=== PATIENT | male | born 1950 | race Caucasian/White ===

== ENCOUNTER → 2018-08-04 | Outpatient (CLI) | payer MEDICARE | END | disposition home or self-care (01) | LOC: RAH 11:47 | PROVIDERS: ATTEND Orthopaedic Surgery | DX: M75.102 Unspecified rotator cuff tear or rupture of left shoulder, not specified as traumatic (principal) | CPT/HCPCS: 73221 ==

== ENCOUNTER → 2022-08-15 | Outpatient (CLI) | payer MEDICARE | END | disposition home or self-care (01) | LOC: SHCH 14:56 | PROVIDERS: ATTEND Internal Medicine Cardiovascular Disease | DX: I51.7 Cardiomegaly (principal); R01.1 Cardiac murmur, unspecified; E78.5 Hyperlipidemia, unspecified | CPT/HCPCS: 93306 ==

== ENCOUNTER 2023-01-23 05:52 | Day surgery (SDC) | payer MEDICARE ==
[2023-01-21 10:17] LABS: BASOPHILS # (AUTO) 0.03 K/uL (0.00-0.20); BASOPHILS % (AUTO) 0.3 % (0.0-5.0); EOSINOPHILS # (AUTO) 0.27 K/uL (0.00-0.70); EOSINOPHILS % (AUTO) 2.8 % (0.0-8.0); HEMATOCRIT 49.3 % (42-54); IMMATURE GRANULOCYTE ABSOLUTE 0.03 K/uL (0-1); LYMPHOCYTES # (AUTO) 3.2 K/uL (1.0-4.8); LYMPHOCYTES % (AUTO) 32.4 % (21.0-51.0); MEAN CORPUSCULAR HEMOGLOBIN 28.2 pg (27.0-33.0); MEAN CORPUSCULAR HGB CONC 32.5 g/dL (32.0-36.0); MEAN CORPUSCULAR VOLUME 86.9 fL (79-99); MONOCYTES # (AUTO) 1.1 K/uL (0.1-1.0); MONOCYTES % (AUTO) 11.1 % (3.0-13.0); NEUTROPHILS # (AUTO) 5.2 K/uL (1.8-7.7); NEUTROPHILS % (AUTO) 53.1 % (40.0-77.0); PLATELET COUNT (AUTO) 235 K/uL (130-400); RED BLOOD CELL COUNT(AUTO) 5.67 MIL/uL (4.50-6.20); RED CELL DISTRIBUTION WIDTH 13.2 % (11.0-15.5); WHITE BLOOD COUNT (AUTO) 9.8 K/uL (4.8-10.8)
[2023-01-21 10:29] LABS: APPEARANCE,URINE CLEAR (CLEAR); BILIRUBIN,URINE NEGATIVE (NEGATIVE); COLOR,URINE LIGHT-YELLOW (YELLOW); GLUCOSE, URINE (UA) NEGATIVE (NEGATIVE); KETONES,URINE NEGATIVE (NEGATIVE); LEUKOCYTE ESTERASE ,URINE NEGATIVE Leu/uL (NEGATIVE); NITRATE,URINE NEGATIVE (NEGATIVE); OCCULT BLOOD,URINE NEGATIVE (NEGATIVE); PROTEIN,URINE NEGATIVE (NEGATIVE); UROBILINOGEN,URINE 0.2 mg/dL (0.2-1.0)
[2023-01-21 10:30] LABS: CREATININE 0.9 mg/dL (0.5-1.5)
[2023-01-21 10:35] LABS: INR 0.96 (0.85-1.15); PROTHROMBIN TIME 11.2 SEC (9.6-11.6)
[2023-01-21 10:36] LABS: PARTIAL THROMBOPLASTIN TIME 26.5 SEC (26.3-35.5)
[2023-01-21 10:42] LABS: ADD UA MICROSCOPIC NO
[2023-01-21 11:03] VITALS: BP 134/88; PULSE 61; RESP 18
[2023-01-21 11:09] LABS: B-TYPE NATRIURETIC PEPTIDE 102 pg/mL (0-100)
[~2023-01-23] VITALS: Ht 182.9 cm; Wt 96.7 kg
[2023-01-23] VITALS (18 sets, daily range): BP systolic 94–134; BP diastolic 57–97; PULSE 54–70; RESP 12–17
[~2023-01-23 05:52] MED LIST: APIX5TAB PO; ASCO500C18 PO; CALCIUM ANTACID PO; CETI10CA5 PO; CINNAMON PO; CRAN500T4 PO; FISH1CAP27 PO; FLEC50TA3 PO; GLUC-29 PO; LUBI24CA9 PO; METO25TA6 PO; MULT-1367 PO; ROSU10TA28 PO; UBID100C45 PO; VITAMIN D3 PO
[2023-01-23] MEDS ORDERED: 0.9%NACL 1000ML 1,000 ML IV ONE (06:40)
[2023-01-23] MEDS ORDERED: FENTANYL CITRATE PF 50 MCG/1 ML 2ML VIAL ONE (07:31)
[2023-01-23] MEDS ORDERED: MIDAZOLAM HCL 1 MG/ML 2ML VIAL ONE (07:31)
[2023-01-23] MEDS ORDERED: NALOXONE HCL 0.4 MG/1 ML ML ONE (07:32)
[2023-01-23] MEDS ORDERED: FLUMAZENIL 0.1MG/1ML 5ML VIAL IV ONE (07:32)
== END 2023-01-23 11:00 | disposition home or self-care (01) ==
LOC: DAH 05:52
PROVIDERS: ATTEND Internal Medicine Cardiovascular Disease
DX: I48.0 Paroxysmal atrial fibrillation (principal); J44.9 Chronic obstructive pulmonary disease, unspecified; I49.3 Ventricular premature depolarization; M75.122 Complete rotator cuff tear or rupture of left shoulder, not specified as traumatic; E78.5 Hyperlipidemia, unspecified; G89.29 Other chronic pain; Z79.01 Long term (current) use of anticoagulants; Z88.0 Allergy status to penicillin; Z98.890 Other specified postprocedural states; Z87.891 Personal history of nicotine dependence; Z79.899 Other long term (current) drug therapy
CPT/HCPCS: 80048; 83880; 85025; 85610; 85730; 81003; 36415; 71045; 93005 ×3; 92960; J3010; J7030; J2250; A4215; A4223 ×3; A7002; A4222; A4221; A4663; A4216; A4606; 99152; J2310; J3490; G0500

== ENCOUNTER 2023-02-22 06:40 | Day surgery (SDC) | payer MEDICARE ==
[2023-02-20 14:38] LABS: BASOPHILS # (AUTO) 0.02 K/uL (0.00-0.20); BASOPHILS % (AUTO) 0.2 % (0.0-5.0); EOSINOPHILS # (AUTO) 0.23 K/uL (0.00-0.70); EOSINOPHILS % (AUTO) 2.2 % (0.0-8.0); HEMATOCRIT 48.3 % (42-54); IMMATURE GRANULOCYTE ABSOLUTE 0.03 K/uL (0-1); LYMPHOCYTES # (AUTO) 3.5 K/uL (1.0-4.8); LYMPHOCYTES % (AUTO) 33.5 % (21.0-51.0); MEAN CORPUSCULAR HEMOGLOBIN 28.3 pg (27.0-33.0); MEAN CORPUSCULAR HGB CONC 32.9 g/dL (32.0-36.0); MEAN CORPUSCULAR VOLUME 86.1 fL (79-99); MONOCYTES # (AUTO) 0.9 K/uL (0.1-1.0); MONOCYTES % (AUTO) 8.3 % (3.0-13.0); NEUTROPHILS # (AUTO) 5.8 K/uL (1.8-7.7); NEUTROPHILS % (AUTO) 55.5 % (40.0-77.0); PLATELET COUNT (AUTO) 237 K/uL (130-400); RED BLOOD CELL COUNT(AUTO) 5.61 MIL/uL (4.50-6.20); RED CELL DISTRIBUTION WIDTH 13.1 % (11.0-15.5); WHITE BLOOD COUNT (AUTO) 10.4 K/uL (4.8-10.8)
[2023-02-20 14:49] LABS: CREATININE 1.1 mg/dL (0.5-1.5); POTASSIUM 4.5 mmol/L (3.5-5.1)
[2023-02-20 14:59] LABS: INR 0.98 (0.85-1.15); PROTHROMBIN TIME 11.4 SEC (9.6-11.6)
[2023-02-20 15:00] LABS: PARTIAL THROMBOPLASTIN TIME 29.6 SEC (26.3-35.5)
[2023-02-20 15:05] VITALS: BP 119/75; PULSE 61; RESP 18
[~2023-02-22] VITALS: Ht 182.9 cm; Wt 96.6 kg
[2023-02-22] VITALS (13 sets, daily range): BP systolic 99–138; BP diastolic 45–93; PULSE 57–74; RESP 14–16
[~2023-02-22 06:40] MED LIST changes: +DRON400T7 PO; -FLEC50TA3 PO; -METO25TA6 PO
[2023-02-22] MEDS ORDERED: 0.9%NACL 1000ML 1,000 ML IV ONE (07:54)
[2023-02-22] MEDS ORDERED: PROPOFOL 10 MG/ML 20ML VIAL IV ONE (08:43)
== END 2023-02-22 09:50 | disposition home or self-care (01) ==
LOC: DAH 06:40
PROVIDERS: ATTEND Internal Medicine Cardiovascular Disease
DX: I48.19 Other persistent atrial fibrillation (principal); J44.9 Chronic obstructive pulmonary disease, unspecified; E66.9 Obesity, unspecified; I49.3 Ventricular premature depolarization; Z88.8 Allergy status to other drugs, medicaments and biological substances; Z88.0 Allergy status to penicillin; Z98.890 Other specified postprocedural states; Z87.891 Personal history of nicotine dependence; Z79.899 Other long term (current) drug therapy; Z79.01 Long term (current) use of anticoagulants; Z68.29 Body mass index [BMI] 29.0-29.9, adult
CPT/HCPCS: 80048; 85025; 85610; 85730; 36415; 92960; 93005 ×2; J7030; J2704; A4620; A4215; A4223 ×3; A7002; A4222; A4221; A4663; A4216; A4606; 99156; 99157; J3490

== ENCOUNTER 2023-03-14 07:16 | Observation (INO) | payer MEDICARE ==
[2023-03-14] VITALS (31 sets, daily range): BP systolic 100–151; BP diastolic 58–100; PULSE 66–96; RESP 13–30; O2SAT 96
[~2023-03-14] VITALS: Ht 182.9 cm; Wt 93.0 kg
[2023-03-14] MEDS ORDERED: AMIODARONE 900MG VIAL 360 MG in DEXTROSE 5%-WATER 200 ML IV SCH (07:30)
[2023-03-14] MEDS ORDERED: AMIODARONE 900MG VIAL 540 MG in DEXTROSE 5%-WATER 300 ML IV SCH (07:30)
[2023-03-14 08:08] LABS: BASOPHILS # (AUTO) 0.03 K/uL (0.00-0.20); BASOPHILS % (AUTO) 0.3 % (0.0-5.0); EOSINOPHILS # (AUTO) 0.34 K/uL (0.00-0.70); EOSINOPHILS % (AUTO) 3.5 % (0.0-8.0); HEMATOCRIT 49.1 % (42-54); IMMATURE GRANULOCYTE ABSOLUTE 0.03 K/uL (0-1); LYMPHOCYTES # (AUTO) 2.9 K/uL (1.0-4.8); LYMPHOCYTES % (AUTO) 29.8 % (21.0-51.0); MEAN CORPUSCULAR HEMOGLOBIN 28.3 pg (27.0-33.0); MEAN CORPUSCULAR HGB CONC 33.2 g/dL (32.0-36.0); MEAN CORPUSCULAR VOLUME 85.4 fL (79-99); NEUTROPHILS # (AUTO) 5.5 K/uL (1.8-7.7); NEUTROPHILS % (AUTO) 56.1 % (40.0-77.0); PLATELET COUNT (AUTO) 238 K/uL (130-400); RED BLOOD CELL COUNT(AUTO) 5.75 MIL/uL (4.50-6.20); RED CELL DISTRIBUTION WIDTH 13.2 % (11.0-15.5); WHITE BLOOD COUNT (AUTO) 9.7 K/uL (4.8-10.8)
[2023-03-14 08:19] LABS: POTASSIUM 4.1 mmol/L (3.5-5.1)
[2023-03-14 08:31] LABS: ALBUMIN 3.8 g/dL (3.5-5.0); BILIRUBIN,TOTAL 0.7 mg/dL (0.2-1.0); MAGNESIUM 1.9 mg/dL (1.80-2.40); THYROID STIMULATING HORMONE 2.15 uIU/mL (0.36-3.74); TOTAL PROTEIN, SERUM 7.4 g/dL (6.0-8.3)
[2023-03-14] MEDS ORDERED: POTASSIUM CHLORIDE 20MEQ/100ML 100 ML IV PRN (19:30)
[2023-03-14] MEDS ORDERED: MAGNESIUM 2GM PREMIX 50ML 50 ML IV PRN (19:30)
[2023-03-14] MEDS ORDERED: POTASSIUM CHLORIDE 10% ELIXIR 20 MEQ/15 ML UDCUP PO PRN (19:30)
[2023-03-14] MEDS ORDERED: KCL 20 MEQ ERTAB PO PRN (19:30)
[2023-03-14] MEDS: APIXABAN 5 MG TABLET PO SCH (20:52)
[2023-03-15] VITALS (17 sets, daily range): BP systolic 104–151; BP diastolic 40–92; PULSE 71–83; RESP 13–58; O2SAT 98
[2023-03-15 04:50] LABS: BASOPHILS # (AUTO) 0.03 K/uL (0.00-0.20); BASOPHILS % (AUTO) 0.3 % (0.0-5.0); EOSINOPHILS # (AUTO) 0.24 K/uL (0.00-0.70); EOSINOPHILS % (AUTO) 2.1 % (0.0-8.0); HEMATOCRIT 48.3 % (42-54); IMMATURE GRANULOCYTE ABSOLUTE 0.06 K/uL (0-1); LYMPHOCYTES # (AUTO) 2.3 K/uL (1.0-4.8); LYMPHOCYTES % (AUTO) 20.1 % (21.0-51.0); MEAN CORPUSCULAR HEMOGLOBIN 28.6 pg (27.0-33.0); MEAN CORPUSCULAR HGB CONC 32.7 g/dL (32.0-36.0); MEAN CORPUSCULAR VOLUME 87.3 fL (79-99); MONOCYTES # (AUTO) 1.2 K/uL (0.1-1.0); MONOCYTES % (AUTO) 10.7 % (3.0-13.0); NEUTROPHILS # (AUTO) 7.5 K/uL (1.8-7.7); NEUTROPHILS % (AUTO) 66.3 % (40.0-77.0); PLATELET COUNT (AUTO) 209 K/uL (130-400); RED BLOOD CELL COUNT(AUTO) 5.53 MIL/uL (4.50-6.20); RED CELL DISTRIBUTION WIDTH 13.2 % (11.0-15.5); WHITE BLOOD COUNT (AUTO) 11.4 K/uL (4.8-10.8)
[2023-03-15 04:59] LABS: MAGNESIUM 1.9 mg/dL (1.80-2.40); POTASSIUM 4.8 mmol/L (3.5-5.1)
[2023-03-15] MEDS ORDERED: AMIODARONE 200 MG TABLET PO ONE (08:30)
[2023-03-15] MEDS: APIXABAN 5 MG TABLET PO SCH (08:30)
[2023-03-15] MEDS ORDERED: PROPOFOL 10 MG/ML 20ML VIAL IV ONE (09:14)
[2023-03-15] MEDS ORDERED: ATROPINE 1MG SYG IVP ONE (09:14)
[2023-03-15] MEDS ORDERED: AMIO200T68 PO (09:54)
== END 2023-03-15 15:45 | disposition home or self-care (01) ==
LOC: EDH 07:16 → DIRECT 07:17 → UNDOADMOB 07:28 → DIRECT 09:13 → 2BH 09:13
PROVIDERS: ADMIT Internal Medicine Cardiovascular Disease; ATTEND Internal Medicine Cardiovascular Disease
DX: I48.19 Other persistent atrial fibrillation (principal); J44.9 Chronic obstructive pulmonary disease, unspecified; Z79.01 Long term (current) use of anticoagulants; Z79.899 Other long term (current) drug therapy
CPT/HCPCS: 96365; 96366; 84443; 83735 ×2; 80053; 85025 ×2; 36415 ×2; 71045; 96367; 92960; 80048; 93005; G0378 ×32; J7060 ×2; J0282 ×2; J3475; J0461; J2704; 99151; J3490

== ENCOUNTER → 2023-04-03 | Outpatient (CLI) | payer MEDICARE ==
[~2023-04-03] MED LIST changes: +AMIO200T68 PO; -DRON400T7 PO
== END | disposition home or self-care (01) ==
LOC: LAB 14:10
PROVIDERS: ATTEND Internal Medicine Cardiovascular Disease
DX: I48.0 Paroxysmal atrial fibrillation (principal)
CPT/HCPCS: 36415; 82565; 84520

== ENCOUNTER → 2023-04-29 | Outpatient (CLI) | payer MEDICARE ==
[~2023-04-29] MED LIST changes: +IOHEXOL-350 75 ML VIAL IV ONE
== END | disposition home or self-care (01) ==
LOC: RAH 08:42
PROVIDERS: ATTEND Internal Medicine Cardiovascular Disease
DX: I71.21 Aneurysm of the ascending aorta, without rupture (principal); I48.0 Paroxysmal atrial fibrillation; I51.7 Cardiomegaly; M47.815 Spondylosis without myelopathy or radiculopathy, thoracolumbar region; N28.1 Cyst of kidney, acquired
CPT/HCPCS: 71275; Q9967

== ENCOUNTER 2023-06-03 00:22 | Emergency (ER) | payer MEDICARE ==
[~2023-06-03] VITALS: Ht 182.9 cm; Wt 93.0 kg
[~2023-06-03 00:22] MED LIST changes: -IOHEXOL-350 75 ML VIAL IV ONE
[2023-06-03 00:50] LABS: BASOPHILS # (AUTO) 0.03 K/uL (0.00-0.20); BASOPHILS % (AUTO) 0.2 % (0.0-5.0); EOSINOPHILS # (AUTO) 0.42 K/uL (0.00-0.70); EOSINOPHILS % (AUTO) 3.5 % (0.0-8.0); HEMATOCRIT 42.2 % (42-54); IMMATURE GRANULOCYTE ABSOLUTE 0.06 K/uL (0-1); LYMPHOCYTES # (AUTO) 3.7 K/uL (1.0-4.8); LYMPHOCYTES % (AUTO) 30.1 % (21.0-51.0); MEAN CORPUSCULAR HEMOGLOBIN 28.9 pg (27.0-33.0); MEAN CORPUSCULAR HGB CONC 33.4 g/dL (32.0-36.0); MEAN CORPUSCULAR VOLUME 86.5 fL (79-99); MONOCYTES # (AUTO) 0.9 K/uL (0.1-1.0); MONOCYTES % (AUTO) 7.6 % (3.0-13.0); NEUTROPHILS # (AUTO) 7.1 K/uL (1.8-7.7); NEUTROPHILS % (AUTO) 58.1 % (40.0-77.0); PLATELET COUNT (AUTO) 194 K/uL (130-400); RED BLOOD CELL COUNT(AUTO) 4.88 MIL/uL (4.50-6.20); RED CELL DISTRIBUTION WIDTH 13.3 % (11.0-15.5); WHITE BLOOD COUNT (AUTO) 12.1 K/uL (4.8-10.8)
[2023-06-03 00:53] LABS: CREATININE 0.9 mg/dL (0.5-1.5); POTASSIUM 4.4 mmol/L (3.5-5.1)
[2023-06-03 00:54] LABS: INR 0.97 (0.85-1.15); PROTHROMBIN TIME 11.3 SEC (9.6-11.6)
[2023-06-03] MEDS: NITROGLYCERIN 0.4 MG SL TAB SL PRN ×3 (00:54→01:29)
[2023-06-03 00:55] LABS: PARTIAL THROMBOPLASTIN TIME 24.2 SEC (26.3-35.5)
[2023-06-03 00:58] LABS: ALBUMIN 3.5 g/dL (3.5-5.0); BILIRUBIN,TOTAL 0.4 mg/dL (0.2-1.0); MAGNESIUM 1.9 mg/dL (1.80-2.40); TOTAL PROTEIN, SERUM 6.5 g/dL (6.0-8.3)
[2023-06-03] MEDS ORDERED: ASPIRIN 81MG CHEW TAB PO ONE (01:00)
[2023-06-03] MEDS ORDERED: AMIODARONE PO (01:59)
[2023-06-03] MEDS ORDERED: IPRATROPIUM/ALBUTEROL SULFATE 3 ML SOLUTION IH PRN (02:00)
[2023-06-03] MEDS ORDERED: LABETALOL 20MG SYG IV PRN (02:00)
[2023-06-03] MEDS ORDERED: ONDANSETRON 4MG INJ IVP ONE (02:00)
[2023-06-03] MEDS ORDERED: ALBUTEROL 0.083% 2.5 MG/3 ML INH IH PRN (02:00)
[2023-06-03] MEDS ORDERED: DOCUSATE SODIUM 100 MG CAP PO PRN (02:00)
[2023-06-03] MEDS ORDERED: CLONIDINE HCL 0.1 MG TABLET PO PRN (02:00)
[2023-06-03] MEDS ORDERED: TEMAZEPAM 15 MG CAPSULE PO PRN (02:00)
[2023-06-03] MEDS ORDERED: LUBI24CA9 PO (02:00)
[2023-06-03] MEDS ORDERED: ACETAMINOPHEN 325 MG TAB PO PRN (02:00)
[2023-06-03] MEDS ORDERED: ACETAMINOPHEN 650 MG SUPPOSITORY RC PRN (02:00)
[2023-06-03] MEDS ORDERED: HYDRALAZINE 20MG/ML VIAL IV PRN (02:00)
[2023-06-03] MEDS ORDERED: ONDANSETRON 4MG INJ IVP PRN (02:00)
[2023-06-03] MEDS ORDERED: MORPHINE 2 MG SYG IVP ONE ×2 (02:00→06:00)
[2023-06-03] MEDS ORDERED: LACTULOSE 20 GM/30 ML UDCUP PO PRN (02:00)
[2023-06-03] MEDS ORDERED: ROSU10TA28 PO (02:01)
[2023-06-03] MEDS ORDERED: APIX5TAB PO (02:01)
[2023-06-03] MEDS ORDERED: MULT-1367 PO (02:02)
[2023-06-03] MEDS ORDERED: UBID50TA3 PO (02:02)
[2023-06-03] MEDS ORDERED: PAPA1TAB10 PO (02:03)
[2023-06-03] MEDS ORDERED: VITAMIN D3 PO (02:04)
[2023-06-03] MEDS ORDERED: ASCO500C18 PO (02:05)
[2023-06-03] MEDS ORDERED: CALCIUM ANTACID PO (02:06)
[2023-06-03] MEDS ORDERED: FISH OIL OMEGA PO (02:07)
[2023-06-03] MEDS ORDERED: LUTE1CAP4 PO (02:08)
[2023-06-03] MEDS ORDERED: CETI10TA57 PO (02:09)
[2023-06-03] MEDS ORDERED: CINNAMON PO (02:09)
[2023-06-03] MEDS ORDERED: CRAN500T PO (02:10)
[2023-06-03] MEDS ORDERED: PSYLLIUM PO (02:11)
[2023-06-03] MEDS ORDERED: [UNRECOGNIZED DRUG - OTHER] PO (02:11)
[2023-06-03] MEDS ORDERED: NITROGLYCERIN 0.4 MG SL TAB SL PRN (02:30)
[2023-06-03] MEDS ORDERED: KETOROLAC 30MG VIAL (30MG/ML) IVP ONE (03:00)
[2023-06-03] MEDS ORDERED: NITROGLYCERIN 1GM OINT 1 INCH/1GM TD SCH (03:00)
[2023-06-03] MEDS ORDERED: PANTOPRAZOLE 40 MG/VIAL IVP ONE (03:00)
[2023-06-03 03:18] VITALS: PULSE 57; RESP 20; O2SAT 98
[2023-06-03 03:23] LABS: SARS-CoV-2, RNA, NAAT NEGATIVE SARS CoV-2 (NEGATIVE)
[2023-06-03 03:27] LABS: INFLUENZA TYPE A Negative For Type A (NEGATIVE); INFLUENZA TYPE B Negative For Type B (NEGATIVE)
[2023-06-03] MEDS ORDERED: IOHEXOL-350 75 ML VIAL IV ONE (04:19)
[2023-06-03] MEDS ORDERED: IOHEXOL 350 MG/ML 100ML INFUS..BTL IV ONE (04:44)
[2023-06-03 05:41] LABS: APPEARANCE,URINE CLEAR (CLEAR); BILIRUBIN,URINE NEGATIVE (NEGATIVE); COLOR,URINE LIGHT-YELLOW (YELLOW); GLUCOSE, URINE (UA) NEGATIVE (NEGATIVE); KETONES,URINE NEGATIVE (NEGATIVE); LEUKOCYTE ESTERASE ,URINE NEGATIVE Leu/uL (NEGATIVE); NITRATE,URINE NEGATIVE (NEGATIVE); OCCULT BLOOD,URINE NEGATIVE (NEGATIVE); PH,URINE 5.5 (5.0-8.0); PROTEIN,URINE 30 mg/dL (NEGATIVE); UROBILINOGEN,URINE 0.2 mg/dL (0.2-1.0)
[2023-06-03 05:42] LABS: ADD UA MICROSCOPIC YES
[2023-06-03 05:44] LABS: MUCUS,URINE MOD LPF (None Seen); SQUAMOUS EPITHELIAL CELL,UR RARE /HPF (0-2)
[2023-06-03] MEDS ORDERED: ACETAMINOPHEN 650 MG SUPPOSITORY RC ONE ×2 (06:50→07:00)
[2023-06-03 06:51] VITALS: TEMP 99.9
[2023-06-03] MEDS ORDERED: LABETALOL IV SCH (07:00)
[2023-06-03] MEDS ORDERED: NACL 0.9% IV SCH (07:00)
[2023-06-03] MEDS ORDERED: SODIUM CHLORIDE IV SCH ×2 (07:30)
[2023-06-03] MEDS ORDERED: INSULIN HUMULIN R 100 UNIT/ML 3ML SQ SCH (07:30)
[2023-06-03] MEDS ORDERED: LABETALOL HCL IV SCH ×2 (07:30)
[2023-06-03 08:19] LABS: AMPHET/METH SCREEN,URINE NEGATIVE (NEGATIVE); BARBITURATE SCREEN, URINE NEGATIVE (NEGATIVE); BENZODIAZEPINES SCREEN,URINE NEGATIVE (NEGATIVE); CANNABINOID SCREEN,URINE NEGATIVE (NEGATIVE); COCAINE SCREEN,URINE NEGATIVE (NEGATIVE); OPIATE SCREEN,URINE POSITIVE (NEGATIVE); PHENCYCLIDINE SCREEN,URINE NEGATIVE (NEGATIVE)
[2023-06-03 08:30] VITALS: BP 105/52; PULSE 58; RESP 14; O2SAT 97
[2023-06-03] MEDS ORDERED: FISH OIL 1000 MG/CAP PO SCH (09:00)
[2023-06-03] MEDS ORDERED: APIXABAN 5 MG TABLET PO SCH (09:00)
[2023-06-03] MEDS ORDERED: CETIRIZINE HCL 5 MG TABLET PO SCH (09:00)
[2023-06-03] MEDS ORDERED: ASPIRIN 81 MG EC TAB PO SCH (09:00)
[2023-06-03] MEDS ORDERED: AMIODARONE 200 MG TABLET PO SCH (09:00)
[2023-06-03] MEDS ORDERED: ENOXAPARIN SODIUM 40 MG/0.4 ML SYRINGE SQ SCH (09:00)
[2023-06-03] MEDS ORDERED: UBIDECARENONE 50 MG PO SCH (09:00)
[2023-06-03] MEDS ORDERED: NON-FORMULARY MEDICATION 1 EACH (Rosuvastatin Calcium 10 MG) PO SCH (09:00)
== END 2023-06-03 09:34 | disposition hospice, inpatient (51) ==
LOC: EDH 00:22 → EDHIP 01:45 → UNDOADMOB 01:45 → EDHIP 01:48 → UNDOADMOB 01:48 → EDHIP 01:49 → UNDODISOB 09:34 → EDHIP 09:34
DX: I24.9 Acute ischemic heart disease, unspecified (principal); I48.91 Unspecified atrial fibrillation; Z20.822 Contact with and (suspected) exposure to COVID-19; Z79.899 Other long term (current) drug therapy; Z98.890 Other specified postprocedural states; Z88.0 Allergy status to penicillin; Z88.8 Allergy status to other drugs, medicaments and biological substances
CPT/HCPCS: 99291; 71275; 74174; 96374; 96375; 71045; 87635; 83735; 84484; 80053; 83880; 80305; 85025; 85378; 85610; 85730; 87420; 87804 ×2; 36415; 99292; 93005; 94664; 81001; 96376; 71270; J2270 ×2; J2405; J1885; C9113; Q9967 ×2; G0378; J3490; J7050

== ENCOUNTER → 2023-08-28 | Outpatient (CLI) | payer MEDICARE ==
[~2023-08-28] MED LIST changes: +AMIODARONE PO; +CETI10TA57 PO; +CRAN500T PO; +FISH OIL OMEGA PO; +LUTE1CAP4 PO; +PAPA1TAB10 PO; +PSYLLIUM PO; +UBID50TA3 PO; +[UNRECOGNIZED DRUG - OTHER] PO
== END | disposition home or self-care (01) ==
LOC: RESP 10:00
PROVIDERS: ATTEND Internal Medicine Cardiovascular Disease
DX: J44.9 Chronic obstructive pulmonary disease, unspecified (principal); Z79.899 Other long term (current) drug therapy
CPT/HCPCS: 94010; 94729

== ENCOUNTER 2024-06-16 05:49 | Day surgery (SDC) | payer MEDICARE ==
[2024-06-12 11:36] LABS: BASOPHILS # (AUTO) 0.03 K/uL (0.00-0.20); BASOPHILS % (AUTO) 0.3 % (0.0-5.0); EOSINOPHILS % (AUTO) 2.3 % (0.0-8.0); IMMATURE GRANULOCYTE ABSOLUTE 0.03 K/uL (0-1); LYMPHOCYTES # (AUTO) 2.1 K/uL (1.0-4.8); LYMPHOCYTES % (AUTO) 23.5 % (21.0-51.0); MEAN CORPUSCULAR HEMOGLOBIN 29.1 pg (27.0-33.0); MEAN CORPUSCULAR HGB CONC 32.9 g/dL (32.0-36.0); MEAN CORPUSCULAR VOLUME 88.4 fL (79-99); MONOCYTES # (AUTO) 0.8 K/uL (0.1-1.0); MONOCYTES % (AUTO) 8.6 % (3.0-13.0); NEUTROPHILS # (AUTO) 5.7 K/uL (1.8-7.7); PLATELET COUNT (AUTO) 190 K/uL (130-400); RED BLOOD CELL COUNT(AUTO) 5.43 MIL/uL (4.50-6.20); RED CELL DISTRIBUTION WIDTH 13.3 % (11.0-15.5); WHITE BLOOD COUNT (AUTO) 8.7 K/uL (4.8-10.8)
--- NOTE | 2024-06-12 11:46 | EKG ---
[facility] Test Date: 2024-06-12 Test Time: 12:11:52 Pat Name: DHIRAJ KNIGHT Department: [facility] Room: Gender: M [employer] Agent: [id number] : 1950 Requested By: JULIÁN ALBARADO Order Number: [id number] Reading MD: Alexandro Watson Measurements Intervals [place] Rate: 118 P: 0 DC: 0 QRS: 258 QRSD: 99 T: 72 QT: 426 QTc: 598 Interpretive Statements Basline artifact, possible Atrial fibrillation with rapid V-rate Ventricular tachycardia, unsustained Left anterior fascicular block Probable lateral infarct, old Compared to ECG 06/03/2023 00:22:34 Ventricular tachycardia now present Myocardial infarct finding now present Sinus rhythm no longer present Electronically Signed On 06-12-2024 12:27:34 [employer]PERATIONAL INTELLIGENCE OFFICER by Alexandro Watson Please click the below link to view image of tracing.
[2024-06-12 11:48] LABS: INR 0.99 (0.85-1.15); PROTHROMBIN TIME 11.1 SEC (9.6-11.6)
[2024-06-12 11:50] LABS: PARTIAL THROMBOPLASTIN TIME 29.2 SEC (26.3-35.5)
[2024-06-12 11:54] LABS: POTASSIUM 4.2 mmol/L (3.5-5.1)
[2024-06-12 12:14] VITALS: BP 156/70; PULSE 52; RESP 18; TEMP 98
[~2024-06-16] VITALS: Ht 182.9 cm; Wt 96.5 kg
[2024-06-16] VITALS (21 sets, daily range): BP systolic 91–140; BP diastolic 40–80; PULSE 51–92; RESP 12–16; TEMP 97.1–98.1
[~2024-06-16 05:49] MED LIST changes: -AMIO200T68 PO; -AMIODARONE PO; -CALCIUM ANTACID PO; -CETI10TA57 PO; -CRAN500T PO; -FISH1CAP27 PO; +LOSA100T59 PO; -LUTE1CAP4 PO; -PSYLLIUM PO; -ROSU10TA28 PO; +ROSU10TA72 PO; -UBID50TA3 PO; -[UNRECOGNIZED DRUG - OTHER] PO
[2024-06-16] MEDS: 0.9%NACL 1000ML 1,000 ML IV ONE (06:43)
[2024-06-16] MEDS ORDERED: acetaMINOPHEN 100 ML ONE (06:54)
[2024-06-16] MEDS ORDERED: FAMOTIDINE 20MG VIAL IV ONE (06:54)
[2024-06-16] MEDS ORDERED: LIDOCAINE HCL-MPF 2% 10ML AMP IJ ONE (06:56)
[2024-06-16] MEDS ORDERED: dexaMETHasone SOD PHOSPHATE 10MG/ML 1ML VIAL ONE (06:57)
[2024-06-16] MEDS ORDERED: rocuRONium bROMide 10MG/1ML 5ML VL ONE ×2 (06:57→08:23)
[2024-06-16] MEDS ORDERED: FENTanyl CITRate PF 50 MCG/1 ML 2ML VIAL ONE (06:57)
[2024-06-16] MEDS ORDERED: GLYCOPYRROLATE 0.2 MG/ML 5 ML VIAL ONE (06:57)
[2024-06-16] MEDS ORDERED: proPOFol 10 MG/ML 20ML VIAL IV ONE (06:57)
[2024-06-16] MEDS ORDERED: ondanSETRON 4MG INJ ONE (06:58)
[2024-06-16] MEDS ORDERED: NEOSTIGMINE METHYLSULFATE 1MG/ML IV ONE (06:58)
[2024-06-16] MEDS ORDERED: ALBUTEROL INHALER 90MCG/INH IH ONE (07:04)
[2024-06-16] MEDS ORDERED: LIDOCAINE HCL 400MG/20ML VIAL ONE (07:36)
[2024-06-16] MEDS ORDERED: HEParin 10,000 UNIT/10ML (1,000 UNIT/ML) VIAL ONE ×2 (07:36→08:30)
[2024-06-16] MEDS ORDERED: HEParin-NS 1,000 UNIT/500 ML 1,500 ML IV ONE (07:36)
[2024-06-16] MEDS ORDERED: ceFAZolin SODIUM 1 GM VIAL ONE (07:44)
[2024-06-16] MEDS ORDERED: HEParin-NS 1,000 UNIT/500 ML 500 ML IV ONE (07:51)
[2024-06-16] MEDS ORDERED: ePHEDrine SULFate 50 MG/ML AMPULE ONE (07:59)
[2024-06-16] MEDS ORDERED: PROTamine SULFate 10 MG/ML 25ML VIAL IV ONE (09:55)
[2024-06-16] MEDS ORDERED: SUCR1TAB2 PO (10:24)
[2024-06-16] MEDS ORDERED: PANT40TA55 PO (10:24)
[2024-06-16] MEDS: SUCRALFATE 1 GM/10 ML PO ONE (10:46)
[2024-06-16] MEDS: PANTOPrazole 40 MG TAB DR PO ONE (10:46)
--- NOTE | 2024-06-16 13:40 | NUR ---
urinary: voided 100cc dark yellow color urine per urinal without difficulty.
--- NOTE | 2024-06-16 14:11 | NUR ---
report: hand off communication given to mt danielle rn
== END 2024-06-16 15:40 | disposition home or self-care (01) ==
LOC: DAH 05:49
PROVIDERS: ATTEND Internal Medicine Cardiovascular Disease
DX: I48.19 Other persistent atrial fibrillation (principal); J44.9 Chronic obstructive pulmonary disease, unspecified; R00.1 Bradycardia, unspecified; I10 Essential (primary) hypertension; G47.33 Obstructive sleep apnea (adult) (pediatric); E66.9 Obesity, unspecified; Z68.28 Body mass index [BMI] 28.0-28.9, adult; Z79.01 Long term (current) use of anticoagulants; Z95.1 Presence of aortocoronary bypass graft; Z88.0 Allergy status to penicillin; Z88.1 Allergy status to other antibiotic agents; Z79.899 Other long term (current) drug therapy; Z98.890 Other specified postprocedural states
CPT/HCPCS: 80048; 85025; 85610; 85730; 36415; 93005; 93656; 93657; C1894 ×3; C1732 ×3; A4649 ×2; C1760 ×3; C1766; J3490 ×7; J3010; J0690; J1100; J7030; J1644 ×4; J2704; J2405; J2710; A4215; A4222; A4221; A4663; A4216; A4606; J2720; A4223 ×3

== ENCOUNTER → 2024-08-05 | Outpatient (CLI) | payer MEDICARE ==
[~2024-08-05] MED LIST changes: +PANT40TA55 PO; +SUCR1TAB2 PO
--- NOTE | 2024-08-05 11:17 | HMCIMG ---
UPPER GI TRACT, WO KUB REASON: Dysphagia, unspecified; GERD without esophagitis; Diaphragmatic hernia with. COMPARISON: None TECHNIQUE: Biphasic upper GI series study was performed. FINDINGS: There is no obstruction to the antegrade passage of barium from mouth through jejunum. A normal esophageal stripping wave is seen. There is no evidence of hiatal hernia. There is gastroesophageal reflux seen to the level of upper thoracic esophagus. The stomach is well distended without ulceration or mass lesion. There is duodenal diverticulum. Duodenal bulb and duodenal sweep are unremarkable. IMPRESSION: 1. No obstruction. Duodenal diverticulum. Gastroesophageal reflux to the level of upper thoracic esophagus.
== END | disposition home or self-care (01) ==
LOC: RAH 08:43
PROVIDERS: ATTEND Internal Medicine
DX: K21.9 Gastro-esophageal reflux disease without esophagitis (principal); K57.10 Diverticulosis of small intestine without perforation or abscess without bleeding; K44.9 Diaphragmatic hernia without obstruction or gangrene; R13.10 Dysphagia, unspecified
CPT/HCPCS: 74240

== ENCOUNTER → 2025-01-12 | Outpatient (CLI) | payer MEDICARE ==
[~2025-01-12] MED LIST changes: +FIBER CAPSULES PO; +LINA145C PO; -LUBI24CA9 PO; +LUTEIN PO; -PANT40TA55 PO; -SUCR1TAB2 PO
--- NOTE | 2025-01-12 17:48 | HMCIMG ---
EXAM: CT Chest Without Intravenous Contrast. CLINICAL HISTORY: 74-year-old male with asthma. TECHNIQUE: Axial computed tomography images of the chest without intravenous contrast. Dose reduction technique was used including one or more of the following: automated exposure control, adjustment of mA and kV according to patient size, and/or iterative reconstruction. CONTRAST: None. COMPARISON: None provided. FINDINGS: LUNGS: No pulmonary mass. No focal airspace consolidation. PLEURAL SPACES: No pleural effusion. No pneumothorax. HEART AND MEDIASTINUM: No cardiomegaly. No significant pericardial effusion. Atherosclerotic changes in the coronary arteries. Sternotomy wires are seen. LYMPH NODES: No lymphadenopathy. CHEST WALL AND UPPER ABDOMEN: The chest wall is unremarkable. Left renal pelvis stone. Bilateral renal cysts seen, follow up with renal ultrasound. BONES: Moderate degenerative changes of the thoracic spine. VASCULATURE: Atherosclerotic changes in the aorta. IMPRESSION: 1. No acute intra-thoracic abnormality. 2. Atherosclerotic changes in the aorta and coronary arteries. 3. Left renal pelvis stone and bilateral renal cysts. Recommend follow-up with renal ultrasound. /[place]
== END | disposition home or self-care (01) ==
LOC: RAH 12:31
PROVIDERS: ATTEND Internal Medicine
DX: J44.89 Other specified chronic obstructive pulmonary disease (principal); N28.1 Cyst of kidney, acquired; N20.0 Calculus of kidney; I70.0 Atherosclerosis of aorta; I25.10 Atherosclerotic heart disease of native coronary artery without angina pectoris; M47.814 Spondylosis without myelopathy or radiculopathy, thoracic region
CPT/HCPCS: 71250

== ENCOUNTER 2025-04-14 05:56 | Day surgery (SDC) | payer MEDICARE ==
[~2025-04-14] VITALS: Ht 182.9 cm; Wt 93.0 kg
[2025-04-14] VITALS (12 sets, daily range): BP systolic 85–152; BP diastolic 48–76; PULSE 53–57; RESP 13–18; TEMP 97.1–98.2
[~2025-04-14 05:56] MED LIST changes: -CETI10CA5 PO; -CRAN500T4 PO; +CRAN500T7 PO; +LACT10SO85 PO; -LINA145C PO; -ROSU10TA72 PO; +ROSU10TA98 PO
[2025-04-14] MEDS: 0.9%NACL 1000ML 1,000 ML IV ONE (06:55)
== END 2025-04-14 09:50 | disposition home or self-care (01) ==
LOC: ENDO 05:56 → DAH 05:56 → ENDO 09:50
PROVIDERS: ATTEND Internal Medicine Gastroenterology
DX: R13.10 Dysphagia, unspecified (principal); K29.50 Unspecified chronic gastritis without bleeding; K31.89 Other diseases of stomach and duodenum; E78.5 Hyperlipidemia, unspecified; R14.0 Abdominal distension (gaseous); K59.04 Chronic idiopathic constipation; K64.9 Unspecified hemorrhoids; K57.30 Diverticulosis of large intestine without perforation or abscess without bleeding; I48.0 Paroxysmal atrial fibrillation; I10 Essential (primary) hypertension; J44.9 Chronic obstructive pulmonary disease, unspecified; K21.9 Gastro-esophageal reflux disease without esophagitis; Z88.0 Allergy status to penicillin; Z88.1 Allergy status to other antibiotic agents; Z79.01 Long term (current) use of anticoagulants; Z79.899 Other long term (current) drug therapy
CPT/HCPCS: 43239; J2704; J7030; A4215; A4620; A7002; J3490